=== PATIENT | female | born 1985 | race Caucasian/White ===

== ENCOUNTER 2017-06-26 14:10 | Emergency (ER) | payer OTHER ==
[~2017-06-26] VITALS: Ht 165.1 cm; Wt 117.9 kg
[~2017-06-26 14:10] MED LIST: ACYCLOVIR; AMBIEN 5 MG TABL5 MG PO; APAP500 PO; AUGMENTIN 875875 M1 PO; AZITHROMYCIN 2250 MG PO; BACTRIM DS TAB1 EACH PO; COLACE 100 MG100 MG PO; DERMOPLAST SPRA56 ML; DOXYCYCLINE 10100 M1 PO; HYDROCODON-ACE1 EAC7 PO; IBUPROFEN 600600 M1 PO; IBUPROFEN 800800 M1 PO; IRON325 PO; NOHOMEMEDICATIONS; NORCO 5-325 TA1 EACH PO; PERCOCET 5-3251 EACH PO; PRENATAL COMPL1 EACH PO; PRENATAL PO; TRI-SPRINTEC1 EACH; TUCKS MEDICATE1 EAC1; ULTRAM 50MG TAB50 MG PO
[2017-06-26 15:20] LABS: INFLUENZA B ANTIGEN None Detected (None Detect)
[2017-06-26] MEDS ORDERED: VENTOLIN HFA 1818 GM INH (15:29)
[2017-06-26] MEDS ORDERED: PROCTOFOAM-HC F10 G1 TOP (15:29)
[2017-06-26] MEDS ORDERED: IBUPROFEN 800800 M1 PO (15:29)
[2017-06-26 15:46] VITALS: BP 140/79
== END 2017-06-26 15:46 | disposition home or self-care (01) ==
LOC: M.ERS 14:10
PROVIDERS: Physician Assistant
DX: J11.1 Influenza due to unidentified influenza virus with other respiratory manifestations (principal); K64.9 Unspecified hemorrhoids; Z88.5 Allergy status to narcotic agent; Z91.02 Food additives allergy status